=== PATIENT | female | born 1935 | race Caucasian/White ===

== ENCOUNTER → 2017-07-01 | Outpatient (CLI) | payer OTHER ==
[~2017-07-01] MED LIST: AUGMENTIN 875-1 EACH PER TUBE; BISACODYL SUPP10 MG RECTAL; CELEXA40 MG PER TUBE; DILTIAZEM HCL60 MG PER TUBE; FENTANYL PATCH75 MCG TRANSDERM; HYDRALAZINE 2525 MG PO; JEVITY 1.2 CAL237 ML PO; LIDODERM1 EACH TRANSDERM; LIORESAL 10 MG10 MG PER TUBE; LIPITOR10 MG PER TUBE; NEURONTIN250 MG/5 M PER TUBE; NORCO 10-325 T1 EACH PER TUBE; NYSTATIN100000 UNI SW&SWALLOW; ONDANSETRON HCL4 M2 PER TUBE; OXYCODONE HCL 55 MG PER TUBE; PEPCID20 MG PER TUBE; PROBIOTIC1 EAC1 PER TUBE; SENNA8.6 MG PER TUBE; UNICOMPLEX M TA1 TA1 PO; VITAMINC500 PO; ZINC-220220 MG PO
== END ==
LOC: HYPER 06:47
DX: L89.154 Pressure ulcer of sacral region, stage 4 (principal); K21.9 Gastro-esophageal reflux disease without esophagitis; I48.91 Unspecified atrial fibrillation; E78.5 Hyperlipidemia, unspecified; H26.9 Unspecified cataract; I10 Essential (primary) hypertension; M19.90 Unspecified osteoarthritis, unspecified site; G82.54 Quadriplegia, C5-C7 incomplete; Z90.710 Acquired absence of both cervix and uterus

== ENCOUNTER → 2017-07-23 | Outpatient (CLI) | payer OTHER | LOC: HYPER 08:12 | DX: L89.154 Pressure ulcer of sacral region, stage 4 (principal); I10 Essential (primary) hypertension; I48.91 Unspecified atrial fibrillation; E78.5 Hyperlipidemia, unspecified; K21.9 Gastro-esophageal reflux disease without esophagitis; G82.54 Quadriplegia, C5-C7 incomplete; M19.90 Unspecified osteoarthritis, unspecified site; Z90.710 Acquired absence of both cervix and uterus ==

== ENCOUNTER → 2017-08-09 | Outpatient (CLI) | payer OTHER | LOC: HYPER 06:47 | DX: L89.154 Pressure ulcer of sacral region, stage 4 (principal); G82.50 Quadriplegia, unspecified; M62.838 Other muscle spasm; R60.0 Localized edema; R13.12 Dysphagia, oropharyngeal phase; K21.9 Gastro-esophageal reflux disease without esophagitis; E78.5 Hyperlipidemia, unspecified; I48.91 Unspecified atrial fibrillation; I10 Essential (primary) hypertension; M19.90 Unspecified osteoarthritis, unspecified site; Z90.710 Acquired absence of both cervix and uterus ==

== ENCOUNTER 2017-08-20 12:34 | Inpatient (IN) | payer OTHER ==
[~2017-08-20] VITALS: Ht 162.6 cm; Wt 75.3 kg
--- NOTE | ~2017-08-20 | S ---
[facility] [place] [address] SURGICAL PATH RPT PROCEDURE Name: SHERI AGUIRRE Room #: 213-P ADM IN M.R.#: [id number] Admission: 08/20/17 Date of : 37 Discharge: Report #: [id number] Path Case #: [id number] PATHOLOGY REPORT COLLECTION DATE: 08/23/2017 RECEIVED DATE: 08/23/2017 SUBMITTING PHYS: Dr. Jp Rivas OTHER PHYS: Dr. Stewart Cisneros SPECIMEN(S) RECEIVED: A.Sacral wound * * * * * * * * * * * * FINAL DIAGNOSIS: Sacral wound, debridement: - Ulceration along with marked acute inflammation as well as gangrenous necrosis. (IUV:mml; 08/24/2017) PATHOLOGIST: Ayla Holley M.D. REPORT ELECTRONICALLY SIGNED BY: Ayla Holley M.D. DATE/TIME: 08/24/2017 15:02 * * * * * * * * * * * * GROSS PATHOLOGY: The specimen is received in formalin, labeled "Sheri Aguirre, sacral wound," and consists of a circular segment of pink-drummond skin with underlying necrotic soft tissue measuring 3.5 x 2.8 x 1.8 cm. Paper Gluing Operator sections are submitted in cassette A1. (SDY; 08/23/2017) CLINICAL HISTORY: Sacral wound INITIAL CPT CODE(S): A; 16416 Professional services performed by [facility] at [facility] [address], [place] [address] Technical services performed by [facility] at [address] [place] [address], [address] [address]. [facility] [address] [place] [address] SURGICAL PATH RPT PROCEDURE Name: SHERI AGUIRRE Room #: 213-P ADM IN M.R.#: [id number] Admission: 08/20/17 Date of : 37 Discharge: Report #: [id number] Path Case #: [id number] [facility] [address] [place] [id number] PHONE: [phone] DIRECTOR: Eben Rao M.D. * * * END OF REPORT * * *
--- NOTE | ~2017-08-20 | EKG ---
[address] [place] [address] ELECTROCARDIOGRAM REPORT Name: KATHY ELAM Room #: 430-P ADM IN M.R.#: [id number] Admission: 08/20/17 Attend Phys: Stewart Powell DO Discharge: Date of : 37 Report #: [id number] THIS REPORT FOR: //name// [facility] Test Date: 2017-08-20 Test Time: 14:17:35 Pat Name: KATHY ELAM Department: Room: 430 Gender: F Study Lead: CARINE : 1935 Requested By: Laura Alvarez Order Number: [id number] MD: Lui Strickland Measurements Intervals [place] Rate: 75 P: 41 NH: 248 QRS: 17 QRSD: 131 T: -14 QT: 421 QTc: 471 Interpretive Statements Sinus rhythm Prolonged NH interval IVCD, consider atypical RBBB Poor R wave progression No previous ECG available for comparison Electronically Signed On 08-22-2017 13:53:34 CDT by Lui Strickland [email or web address] <ELECTRONICALLY SIGNED> By: Lui Strickland MD, [facility] 08/22/17 1353 1417 141 Lui Strickland MD, [facility] /EPI
--- NOTE | ~2017-08-20 | EKG ---
[address] [address] ELECTROCARDIOGRAM REPORT Name: KATHY ELAM Room #: 430-P ADM IN M.R.#: [id number] Admission: 08/20/17 Attend Phys: Stewart Powell DO Discharge: Date of : 37 Report #: [id number] THIS REPORT FOR: //name// [facility] Test Date: 2017-08-20 Test Time: 18:12:43 Pat Name: KATHY ELAM Department: Room: 430 P Gender: F Special Procedure Technologist: CARINE : 1935 Requested By: Chasity Rojas Order Number: [id number] MD: Lui Strickland Measurements Intervals [place] Rate: 92 P: OR: QRS: 97 QRSD: 122 T: -18 QT: 367 QTc: 455 Interpretive Statements Atrial fibrillation Poor R wave progression No previous ECG available for comparison Electronically Signed On 08-22-2017 13:54:55 CDT by Lui Strickland [email or web address] <ELECTRONICALLY SIGNED> By: Lui Strickland MD, [facility] 08/22/17 1354 1812 11 Lui Strickland MD, [facility] /EPI
--- NOTE | ~2017-08-20 | HC ---
[facility] [place] [address] CONSULTATION Name: KATHY ELAM Room #: 430-P [facility] IN M.R.#: [id number] Admission: 08/20/17 Attend Phys: Stewart Powell DO Discharge: Date of : 37 Report #: [id number] THIS REPORT FOR: //name// CC: FAM unknown Stewart Powell DATE OF SERVICE: 08/20/2017 REFERRING PROVIDER: Dr. Stewart Powell. REASON FOR CONSULTATION: Sacral decubitus wound and gastrostomy tube malfunction with slight cellulitis. HISTORY OF PRESENT ILLNESS: The patient is an 82-year-old female with a known history of quadriplegia and rheumatoid arthritis with severe upper extremity contractures, who has undergone prior placement of a gastrostomy tube which has been malfunctioning as of late. The patient has been unable to have her tube changed for the past year and there is sediment contained within the tube that appears to be mold like. The patient has developed a stage 4 sacral decubitus wound that is near her anal orifice and she has had consistent stooling in the bed of the wound, which is preventing wound healing. In addition, the patient has chronic Lam catheter usage with significant ulcerations at her urethral meatus and as such, she has been admitted for care of her sacral wound with early cellulitis, exchange of her gastrostomy tube and colostomy with suprapubic catheter placement. PAST MEDICAL HISTORY: Quadriplegia, rheumatoid arthritis with upper extremity contractures, dysphagia, status post gastrostomy tube placement, hyperlipidemia, atrial fibrillation, prior hysterectomy and bilateral hip surgery. HOME MEDICATIONS: Extensive and include Zofran, [place], citalopram, DuoNebs, Flonase, Neurontin, Lioresal, famotidine, atorvastatin, fentanyl patch, Ativan, nystatin cream, diltiazem, oxycodone IR. ALLERGIES: No known drug allergies. SOCIAL HISTORY: The patient does not utilize tobacco, alcohol or illicit drugs. FAMILY HISTORY: Reviewed and noncontributory. REVIEW OF SYSTEMS: GENERAL: The patient denies nocturnal fevers or chills. HEENT: No change in vision, change in hearing. NECK: No swelling, but difficulty swallowing. HEART: No chest pain or palpitations. LUNGS: No cough or shortness of breath. [address] [address] CONSULTATION Name: KATHY ELAM Room #: [facility] IN M.R.#: [id number] Admission: 08/20/17 Attend Phys: Stewart Powell DO Discharge: Date of : 36 Report #: [id number] ABDOMEN: No nausea, no vomiting. GENITOURINARY: No dysuria or hematuria. ENDOCRINE: No polyuria, polydipsia. HEMATOLOGIC: No history of bleeding or easy bruising. EXTREMITIES: Significant contractures of the upper extremity with quadriplegia. NEUROLOGIC: No history of syncope or near syncopal episodes. SKIN AND INTEGUMENT: Stage 4 sacral decubitus wound. No other lesions in the history. PSYCHIATRIC: No history of anxiety, although there is a history of depression. PHYSICAL EXAMINATION: VITAL SIGNS: Temperature 98.1, pulse 79, respirations 18, blood pressure 123/48, she is 5 feet 4 inches tall and weighs 166 pounds. GENERAL: Alert and oriented, in no acute distress. HEENT: Normocephalic, atraumatic. Pupils equal, round, reactive to light. NECK: Supple, without lymphadenopathy. Trachea midline. HEART: Irregularly irregular rhythm. LUNGS: Clear to auscultation bilaterally. ABDOMEN: Soft, nontender, nondistended. Gastrostomy tube is in place with sediment contained within it that appears mold like. GENITOURINARY: Normal external female genitalia with Lam catheter in place. EXTREMITIES: No clubbing, cyanosis or edema. She does have contractures of bilateral upper extremities. NEUROLOGIC: Cranial nerves 2-12 are grossly intact. She does have incomplete quadriplegia: PSYCHIATRIC: Normal mood and affect. SKIN AND INTEGUMENT: Stage 4 sacral decubitus wound shows slough and periwound necrosis. LABORATORY AND X-RAY DATA: CBC shows white blood cell count of 8.8 thousand; hemoglobin 11.5; platelets 351,000. Creatinine 0.5. Liver function enzymes are normal. Albumin is low at 2.9. Troponin negative. TSH and vitamin B12 are normal. Chest x-ray shows no acute cardiopulmonary process. ASSESSMENT AND PLAN: An 82-year-old female with atrial fibrillation and hyperlipidemia who has incomplete quadriplegia and a malfunctioning gastrostomy tube with a stage 4 sacral decubitus wound that has early cellulitis. The patient necessitates debridement of her wound with exchange of her G-tube and colostomy placement as well as suprapubic catheter placement by IR. The patient will be evaluated by Internal Medicine and Cardiology to obtain preoperative medical and cardiac clearance and once obtained, we will proceed to the operating room for debridement of her sacral wound and diverting loop transverse colostomy with exchange of her gastrostomy tube. She will undergo IR placement of her suprapubic catheter as well. I sincerely appreciate this consult. I did spend more than 60 minutes with the [address] [address] CONSULTATION Name: KATHY ELAM Room #: 430-P ADM IN .R.#: [id number] Admission: 08/20/17 Attend Phys: Stewart Powell DO Discharge: Date of : 37 Report #: [id number] patient today as well as with speaking with the patient's DPOA, which is her niece, Irene and described all the above and all parties are in agreeance to proceed as outlined. I will follow the patient closely while hospitalized and leave any further recommendations in the patient's chart as appropriate. Again, I sincerely appreciate this consult. <ELECTRONICALLY SIGNED> By: Jp Rivas MD, FACS 08/20/17 1558 1529 1556 Jp Rivas MD, FACS /nt
--- NOTE | ~2017-08-20 | 2DMMODE ---
[facility] [address] [place] [address] 2 D/M-MODE ECHOCARDIOGRAM Name: KATHY ELAM Room #: 430-P ADM IN .R.#: [id number] Admission: 08/20/17 Attend Phys: Stewart Powell, Discharge: Date of : 37 Date of Service: 08/21/17 1427 Report #: [id number] THIS REPORT FOR: //name// APPROVED REPORT Study performed: 08/21/2017 10:25:01 EXAM: Comprehensive 2D, Doppler, and color-flow Echocardiogram Patient Location: Bedside Room #: 430 Status: on-call BSA: 1.81 HR: 74 bpm BP: 159/74 mmHg Other Information Study Quality: Technically Limited Technically limited study due to inability to position patient, chest malformation. Indications Pre-Op Atrial Fibrillation 2D Dimensions LVEF(%): 53.89 (>50%) IVSd: 12.91 (7-11mm) LVOT Diam: 19.15 (18-24mm) LVDd: 36.98 mm PWd: 12.63 (7-11mm) Ascending Ao: 25.67 (22-36mm) LVDs: 26.90 (25-40mm) Aortic Root: 29.98 mm Quiroga's LVEF: 53.89 % Aortic Valve AoV Peak Esequiel.: 1.06 m/s AO Peak Gr.: 4.47 mmHg LVOT Max P.44 mmHg LVOT Max V: 0.78 m/s SAMEERA Vmax: 2.13 cm2 Mitral Valve E/A Ratio: 1.1 MV Decel. Time: 275.40 ms MV E Max Esequiel.: 0.74 m/s MV A Esequiel.: 0.69 m/s MV PHT: 79.87 ms [facility] [address] [place] [place] [address] 2 D/M-MODE ECHOCARDIOGRAM Name: LAMBERTO ELAMTE Room #: [address] [place] [address] IN ..#: [id number] Admission: 08/20/17 Attend Phys: Stewart Powell, Discharge: Date of : 37 Date of Service: 08/21/17 1427 Report #: [id number] IVRT: 96.89 ms Pulmonary Valve PV Peak Esequiel.: 0.80 m/s PV Peak Gr.: 2.56 mmHg Left Ventricle The left ventricle is normal size. Mild concentric left ventricular hypertrophy. The left ventricular systolic function is normal. The left ventricular ejection fraction is within the normal range. LVEF is 55-60%. Right Ventricle The right ventricle is normal size. The right ventricular systolic function is normal. Atria The left atrium size is normal. The right atrium size is normal. Aortic Valve The aortic valve is normal in structure. Aortic valve is calcified. There is no aortic valvular stenosis. Mitral Valve The mitral valve is normal in structure. Trace mitral regurgitation. No evidence of mitral valve stenosis. Tricuspid Valve The tricuspid valve is normal in structure. There is trace tricuspid regurgitation. The right atrial pressure is estimated at mmHg. There is no pulmonary hypertension. Pulmonic Valve The pulmonary valve is normal in structure. There is no pulmonic valvular regurgitation. Great Vessels The aortic root is normal in size. IVC is not well visualized. Pericardium There is no pericardial effusion. <Conclusion> The left ventricle is normal size. LVEF is 55-60%. [facility] [place] [address] 2 D/M-MODE ECHOCARDIOGRAM Name: LAMBERTO ELAMTE Room #: 430-P [facility] IN M.R.#: [id number] Admission: 08/20/17 Attend Phys: Stewart Powell, Discharge: Date of : 37 Date of Service: 08/21/17 142 Report #: [id number] The aortic valve is normal in structure. Aortic valve is calcified. The mitral valve is normal in structure. Trace mitral regurgitation. The tricuspid valve is normal in structure. There is trace tricuspid regurgitation. The right atrial pressure is estimated at mmHg. There is no pulmonary hypertension. The pulmonary valve is normal in structure. There is no pericardial effusion. <ELECTRONICALLY SIGNED> By: Norm Omer MD 08/21/17 1427 142 1427 Norm Omer MD /INF
--- NOTE | ~2017-08-20 | O ---
[facility] [place] [address] OPERATIVE REPORT Name: KATHY ELAM Room #: 213-P [facility] IN M.R.#: [id number] Admission: 08/20/17 Attend Phys: Stewart Powell DO Discharge: Date of : 36 Report #: [id number] THIS REPORT FOR: //name// CC: FAM unknown Stewart Powell DATE OF SERVICE: 08/23/2017 PREOPERATIVE DIAGNOSES: 1. Nonhealing stage IV sacral decubitus ulcer. 2. Severe protein calorie malnutrition. 3. Malfunctioning PEG tube. 4. Incomplete quadriplegia. 5. Need for urinary and fecal diversion. 6. Rheumatoid arthritis with upper extremity contractures. 7. Dysphagia, status post PEG tube placement that is nonfunctional. 8. Atrial fibrillation. POSTOPERATIVE DIAGNOSES: 1. Nonhealing stage IV sacral decubitus ulcer. 2. Severe protein calorie malnutrition. 3. Malfunctioning PEG tube. 4. Incomplete quadriplegia. 5. Need for urinary and fecal diversion. 6. Rheumatoid arthritis with upper extremity contractures. 7. Dysphagia, status post PEG tube placement that is nonfunctional. 8. Atrial fibrillation. PROCEDURES PERFORMED: 1. Excisional debridement of skin, subcutaneous tissue, muscle and bone of a stage 4 sacral decubitus wound ultimately measuring 3 x 3 cm in dimension (9 square cm). Preoperative wound measurements were 2 x 2 cm in dimension with circumferential undermining. 2. Thorough esophagogastroduodenoscopy (EGD) with endoscopic removal of an indwelling percutaneous endoscopic gastrostomy (PEG) tube. 3. Percutaneous replacement of a 22-Indonesian gastrostomy tube. 4. Diverting loop transverse colostomy. SURGEON: Jp Rivas M.D. PILOT FUEL ENGINEER: KALEE Castellano. ANESTHESIA: General endotracheal anesthesia. ESTIMATED BLOOD LOSS: Minimal (less than 5 mL). [address] [address] OPERATIVE REPORT Name: KATHY ELAM Room #: 213-P [facility] IN [facility].#: [id number] Admission: 08/20/17 Attend Phys: Stewart Powell DO Discharge: Date of : 36 Report #: [id number] COMPLICATIONS: None appreciated. SPECIMENS: All excised tissue from sacral wound to pathology. INDICATIONS: The patient is an 82-year-old female with incomplete quadriplegia and severe rheumatoid arthritis with upper extremity contractures, who presented with a nonhealing stage IV sacral decubitus wound that has chronic contamination due to stool and urine. The patient presents for debridement of her infected sacral wound as well as diverting colostomy and suprapubic catheter placement, which is to be performed by Interventional Radiology. In addition, her PEG tube, which has been indwelling for quite some time, has been nonfunctional as of late and has overt mold contained throughout the tube; however, this was not able to be removed at the bedside even with traction placed on it, thereby necessitating EGD today. Intraoperative findings of a coiled PEG tube tied and a knot intraluminally within the gastric lumen is what was preventing removal and this required endoscopic removal today with a loop snare prior to replacement of a balloon tip standard gastrostomy tube through the gastrocutaneous fistula tract that remained. DESCRIPTION OF PROCEDURE: After explaining the risks, benefits and alternatives of the procedure with the patient in detail in the preoperative holding area and obtaining consent, the patient was brought to the operating room and placed supine on the operating room table. After conducting a thorough timeout procedure verifying correct patient and procedure, the patient was given general endotracheal anesthesia. Once adequate anesthesia was obtained, her SCDs were hooked up to pneumatic compression device. She was already on an inpatient regimen of IV antibiotic therapy, which is in line with the SCIP protocol. The patient was positioned in the right lateral decubitus position with all pressure points appropriately padded and her sacral wound was prepped and draped in standard surgical sterile fashion. Electrocautery was used to circumferentially debride all skin, subcutaneous tissue and muscle from the periphery of the wound. It was undermined all the way back down to the depths of the wound, which was at the sacral bone. Rongeurs were used to remove bone. Hemostasis was achieved with electrocautery. All tissue was passed off the field as specimen. I then used the [employer] ultrasonic debridement tool to further remove all biofilm and nonviable tissue. Hemostasis was assured once again and the wound was packed with sterile saline soaked gauze, dressed with ABDs, 4 x 4s and Medipore tape. The patient was then positioned back in the supine position and the Fujinon upper endoscope was used to intubate the oropharynx, which was traversed down into the esophagus with ease. Once within the gastric lumen, the internal flange of the PEG tube was seen and the PEG tube itself had become tied in a knot somehow and this was preventing removal through the gastrocutaneous fistula tract. A loop snare was placed down the scope and was used to lasso the internal flange. The PEG tube was then pulled up externally and suture scissors were used to cut this at the skin level. I then proceeded to remove the EGD scope, bringing the internal flange with it, which was pulled out the mouth, [facility] [address] [place] [address] OPERATIVE REPORT Name: KATHY ELAM Room #: 213-P ADM IN M.R.#: [id number] Admission: 08/20/17 Attend Phys: Stewart Powell, Discharge: Date of : 36 Report #: [id number] removing the entire PEG tube in full. The EGD scope was replaced back down in the gastric lumen and we saw no evidence of pathology further. I then used a 22-Indonesian gastrostomy tube and replaced this directly through the remaining patent gastrocutaneous fistula tract. A 10 mL balloon was blown up within the gastric lumen and the external flange was slid down to the skin level at 2 cm marking at the skin level. The EGD scope was used to desufflate the stomach. Lam was removed via the oropharynx, passed off the field and the abdomen was prepped and draped in standard surgical sterile fashion. A #10 bladed scalpel was used to create a 2.5 cm vertical incision in the right mid abdomen, 3 cm lateral to the umbilicus in the patient's right side and 2 cm cephalad to the umbilicus. Electrocautery was used to carry this down through skin and subcutaneous tissues to ensure hemostasis. Once I arrived upon the anterior fascia, this was scored vertically as well, revealing the right rectus muscle posteriorly. The rectus muscle fibers were spread laterally revealing the posterior fascia, which was grasped between hemostats and opened with Metzenbaum scissors. Once intra-abdominal access was gained, a finger was placed in the abdomen, I proceeded to open the fascia for the entire 2.5 cm skin incision length. The transverse colon was seen to reside immediately posterior to our incision and Paulden clamp was used to elevate this into the bed of the wound. A window was made in the mesentery with blunt dissection from my finger and I proceeded to place a colostomy retention bar through this, which was then anchored to the skin using 2-0 nylon in standard fashion. The antimesenteric aspect of the colon was elevated between DeBakey forceps and I proceeded to open the antimesenteric aspect with electrocautery longitudinally. Once I made a colotomy, hemostat was placed within the lumen to ensure no damage to the posterior wall whatsoever. Once I opened the colotomy for approximately 3 cm, I proceeded to mature the colostomy in standard fashion. A 3-0 Vicryl was used to anchor both superiorly and inferiorly on either side of the retention bar, therefore using four separate sutures grabbing full thickness bites of the colon and anchoring it to the dermis on each side of the bar. I then anchored the remaining mucocutaneous junction on the right and left lateral aspects using a running 3-0 Vicryl to complete the mucocutaneous juncture and finished maturing the colostomy. Digital finger intubation of both lumens showed them to be patent to a subfascial level. A sterile ostomy appliance was then applied. At the end of the procedure, all instrument, needle and sponge counts were correct. The patient tolerated the procedure without incident, was awakened in the operating room and transitioned to the recovery room in stable condition with no apparent complications. <ELECTRONICALLY SIGNED> By: Jp Rivas MD, FACS 08/24/17 0745 1248 1320 Jp Rivas MD, FACS /nt
[2017-08-20 13:00] VITALS: BP 123/48
[2017-08-20 14:04] LABS: ABSOLUTE NEUTROPHILS 6.6 thou/uL (1.4-8.2); BASOPHILS 0.3 % (0.0-2.0); EOSINOPHILS 3.7 % (0.0-3.0); HEMATOCRIT 36.1 % (37.0-47.0); HEMOGLOBIN 11.5 gm/dL (12.0-15.0); LYMPHOCYTES 12.2 % (24.0-44.0); MCHC 31.7 g/dL (28.0-37.0); MCV 78.7 fL (80.0-100.0); MONOCYTES 9.2 % (1.0-8.0); PLATELET COUNT 351 thou/uL (150-400); POLYS 74.6 % (36.0-66.0); RBC 4.59 mil/uL (4.20-5.00); RDW 18.4 % (10.5-14.5); WBC 8.8 thou/uL (4.0-11.0)
[2017-08-20 14:20] LABS: CALCIUM 8.7 mg/dL (8.5-10.1); CREATININE 0.5 mg/dL (0.6-1.0); POTASSIUM 3.3 mmol/L (3.5-5.1)
[2017-08-20 14:25] LABS: ALBUMIN 2.9 g/dL (3.4-5.0); TOTAL BILIRUBIN 0.3 mg/dL (<0.1-1.0); TOTAL PROTEIN 7.8 g/dL (6.4-8.2)
[2017-08-20 15:07] LABS: TSH 1.108 uIU/mL (0.358-3.740)
[2017-08-20 19:23] VITALS: BP 144/72
[2017-08-20 23:51] LABS: URINE BILIRUBIN NEGATIVE (Negative); URINE BLOOD 1+ (Negative); URINE CLARITY CLOUDY; URINE COLOR YELLOW; URINE GLUCOSE-RANDOM* NEGATIVE (Negative); URINE KETONES NEGATIVE (Negative); URINE NITRITE-REFLEX NEGATIVE (Negative); URINE PROTEIN (DIPSTICK) TRACE (Negative); URINE SPECIFIC GRAVITY 1.015 (1.005-1.035); URINE UROBILINOGEN 0.2 E.U./dl (0.2-1.0)
[2017-08-20 23:53] LABS: URINE LEUKOCYTES-REFLEX 3+ (Negative)
[2017-08-21 00:07] LABS: CASTS None Seen /LPF (None Seen); MUCUS 0-3 Light strn/LPF (None Seen); SQUAMOUS 4-10 Moderate /LPF (0-3); URINE WBC-REFLEX >25 Many /HPF (0-5)
[2017-08-21 00:08] LABS: AMORPHOUS PHOSPHATES Moderate /LPF (None Seen); BACTERIA-REFLEX >30 Many /HPF (None Seen); TRIPLE PHOSPHATE CRYSTALS 0-3 Few /LPF (None Seen); URINE RBC 3-10 Few /HPF (0-2)
[2017-08-21] MEDS ORDERED: LIORESAL 10 MG10 MG PER TUBE ×2 (03:09→03:10)
[2017-08-21] MEDS ORDERED: FENTANYL PATCH75 MCG TRANSDERM (03:11)
[2017-08-21] MEDS ORDERED: NORCO 10-325 T1 EACH PER TUBE (03:14)
[2017-08-21] MEDS ORDERED: OXYCODONE HCL 55 MG PER TUBE (03:17)
[2017-08-21] MEDS ORDERED: NEURONTIN250 MG/5 M PER TUBE (03:20)
[2017-08-21] MEDS ORDERED: DILTIAZEM HCL60 MG PER TUBE (03:24)
[2017-08-21 03:45] VITALS: BP 152/77
[2017-08-21 04:17] LABS: ABSOLUTE NEUTROPHILS 5.9 thou/uL (1.4-8.2); BASOPHILS 0.4 % (0.0-2.0); EOSINOPHILS 8.2 % (0.0-3.0); HEMATOCRIT 35.9 % (37.0-47.0); HEMOGLOBIN 11.2 gm/dL (12.0-15.0); LYMPHOCYTES 19.7 % (24.0-44.0); MCH 24.7 pg (26.0-34.0); MCHC 31.1 g/dL (28.0-37.0); MCV 79.3 fL (80.0-100.0); MONOCYTES 10.3 % (1.0-8.0); PLATELET COUNT 344 thou/uL (150-400); POLYS 61.4 % (36.0-66.0); RBC 4.53 mil/uL (4.20-5.00); WBC 9.6 thou/uL (4.0-11.0)
[2017-08-21] MEDS ORDERED: HYDRALAZINE 2525 MG PO (04:19)
[2017-08-21] MEDS ORDERED: BISACODYL SUPP10 MG RECTAL (04:20)
[2017-08-21] MEDS ORDERED: SENNA8.6 MG PER TUBE (04:21)
[2017-08-21] MEDS ORDERED: LIPITOR10 MG PER TUBE (04:21)
[2017-08-21] MEDS ORDERED: ONDANSETRON HCL4 M2 PER TUBE (04:22)
[2017-08-21] MEDS ORDERED: PEPCID20 MG PER TUBE (04:22)
[2017-08-21] MEDS ORDERED: CELEXA40 MG PER TUBE (04:23)
[2017-08-21 04:29] LABS: INR 1.1; PROTIME 11.4 Seconds (9.3-11.4)
[2017-08-21 04:40] LABS: ANION GAP 7 mmol/L (7-16); BUN 9 mg/dL (7-18); CALCIUM 8.9 mg/dL (8.5-10.1); CHLORIDE 100 mmol/L (98-107); CHOLESTEROL 104 mg/dL (<200); CO2 29 mmol/L (21-32); CREATININE 0.3 mg/dL (0.6-1.0); GLUCOSE 100 mg/dL (74-106); HDL CHOLESTEROL 30 mg/dL (>40); LDL CHOLESTEROL 62 mg/dL (<100); MAGNESIUM 1.9 mg/dL (1.8-2.4); POTASSIUM 3.8 mmol/L (3.5-5.1); SODIUM 136 mmol/L (136-145); TC:HDL 3.5 Ratio (Not establshd); TRIGLYCERIDE 60 mg/dL (<150); VLDL 12 mg/dL (<40)
[2017-08-21 04:41] LABS: SERUM ASSESSMENT Clear
[2017-08-21] MEDS ORDERED: LIDODERM1 EACH TRANSDERM (07:31)
[2017-08-21] MEDS ORDERED: ZINC-220220 MG PO (07:34)
[2017-08-21] MEDS ORDERED: VITAMINC500 PO (07:36)
[2017-08-21] MEDS ORDERED: UNICOMPLEX M TA1 TA1 PO (07:36)
[2017-08-21] MEDS ORDERED: JEVITY 1.2 CAL237 ML PO (07:37)
[2017-08-21 08:00] VITALS: BP 159/74
[2017-08-21 15:45] VITALS: BP 168/69
[2017-08-21 20:15] VITALS: BP 155/82
[2017-08-22 04:06] VITALS: BP 141/77
[2017-08-22 04:12] VITALS: BP 141/77
[2017-08-22 06:20] LABS: ABSOLUTE NEUTROPHILS 5.5 thou/uL (1.4-8.2); BASOPHILS 0.5 % (0.0-2.0); EOSINOPHILS 6.3 % (0.0-3.0); HEMATOCRIT 37.9 % (37.0-47.0); LYMPHOCYTES 21.4 % (24.0-44.0); MCH 25.3 pg (26.0-34.0); MCHC 31.7 g/dL (28.0-37.0); MCV 79.9 fL (80.0-100.0); MONOCYTES 10.4 % (1.0-8.0); PLATELET COUNT 384 thou/uL (150-400); POLYS 61.4 % (36.0-66.0); RBC 4.75 mil/uL (4.20-5.00); RDW 18.3 % (10.5-14.5)
[2017-08-22 06:29] LABS: CALCIUM 9.5 mg/dL (8.5-10.1); CREATININE 0.4 mg/dL (0.6-1.0); POTASSIUM 4.7 mmol/L (3.5-5.1)
[2017-08-22 07:48] VITALS: BP 178/92
[2017-08-22 19:15] VITALS: BP 156/85
[2017-08-23] VITALS (9 sets, daily range): BP systolic 149–182; BP diastolic 62–99
[2017-08-23 06:02] LABS: HEMATOCRIT 38.8 % (37.0-47.0); HEMOGLOBIN 12.4 gm/dL (12.0-15.0); MCH 25.2 pg (26.0-34.0); MCV 78.7 fL (80.0-100.0); RBC 4.93 mil/uL (4.20-5.00); RDW 17.7 % (10.5-14.5); WBC 9.8 thou/uL (4.0-11.0)
[2017-08-23 06:21] LABS: CALCIUM 9.3 mg/dL (8.5-10.1); CREATININE 0.4 mg/dL (0.6-1.0); POTASSIUM 4.3 mmol/L (3.5-5.1)
[2017-08-24 04:25] LABS: ABSOLUTE NEUTROPHILS 12.1 thou/uL (1.4-8.2); BASOPHILS 0.3 % (0.0-2.0); HEMATOCRIT 37.2 % (37.0-47.0); HEMOGLOBIN 11.9 gm/dL (12.0-15.0); LYMPHOCYTES 6.6 % (24.0-44.0); MCH 25.1 pg (26.0-34.0); MCHC 31.9 g/dL (28.0-37.0); MCV 78.8 fL (80.0-100.0); MONOCYTES 6.3 % (1.0-8.0); PLATELET COUNT 452 thou/uL (150-400); POLYS 86.8 % (36.0-66.0); RBC 4.73 mil/uL (4.20-5.00); RDW 18.1 % (10.5-14.5); WBC 13.9 thou/uL (4.0-11.0)
[2017-08-24 04:30] LABS: CALCIUM 9.2 mg/dL (8.5-10.1); CREATININE 0.4 mg/dL (0.6-1.0); POTASSIUM 4.4 mmol/L (3.5-5.1)
[2017-08-24 04:40] VITALS: BP 142/61
[2017-08-24 07:54] VITALS: BP 139/52
[2017-08-24 11:24] VITALS: BP 121/49
[2017-08-24 19:57] VITALS: BP 110/47
[2017-08-24 20:42] VITALS: BP 110/47
[2017-08-25] VITALS (9 sets, daily range): BP systolic 143–165; BP diastolic 55–66
[2017-08-25 02:36] LABS: ABSOLUTE NEUTROPHILS 9.4 thou/uL (1.4-8.2); BASOPHILS 0.6 % (0.0-2.0); EOSINOPHILS 0.7 % (0.0-3.0); HEMATOCRIT 36.4 % (37.0-47.0); HEMOGLOBIN 11.3 gm/dL (12.0-15.0); LYMPHOCYTES 11.7 % (24.0-44.0); MCH 24.7 pg (26.0-34.0); MCHC 31.1 g/dL (28.0-37.0); MCV 79.4 fL (80.0-100.0); MONOCYTES 8.6 % (1.0-8.0); PLATELET COUNT 423 thou/uL (150-400); POLYS 78.4 % (36.0-66.0); RBC 4.58 mil/uL (4.20-5.00); RDW 17.8 % (10.5-14.5)
[2017-08-25 02:48] LABS: CALCIUM 9.1 mg/dL (8.5-10.1); CREATININE 0.3 mg/dL (0.6-1.0); POTASSIUM 4.1 mmol/L (3.5-5.1)
[2017-08-25] MEDS ORDERED: NYSTATIN100000 UNI SW&SWALLOW (15:12)
[2017-08-25] MEDS ORDERED: AUGMENTIN 875-1 EACH PER TUBE (15:27)
[2017-08-25] MEDS ORDERED: PROBIOTIC1 EAC1 PER TUBE (15:27)
== END 2017-08-25 17:45 | DRG 329 ==
LOC: 4E 12:34 → 2N 08-23 18:05
PROVIDERS: Family Medicine; Hospitalist; Nurse Practitioner; Surgery
DX: K94.23 Gastrostomy malfunction (principal); L89.154 Pressure ulcer of sacral region, stage 4; G82.54 Quadriplegia, C5-C7 incomplete; E43 Unspecified severe protein-calorie malnutrition; N39.0 Urinary tract infection, site not specified; M06.9 Rheumatoid arthritis, unspecified; E78.5 Hyperlipidemia, unspecified; I10 Essential (primary) hypertension; G89.29 Other chronic pain; R13.10 Dysphagia, unspecified; I48.0 Paroxysmal atrial fibrillation; Z90.710 Acquired absence of both cervix and uterus; Z68.28 Body mass index [BMI] 28.0-28.9, adult; Z88.6 Allergy status to analgesic agent; Z88.8 Allergy status to other drugs, medicaments and biological substances
CPT/HCPCS: 10081; 10183; 50010; 50101; 50386; 50403; 50455; 53353; 53354; 56524; 56525; 56530; 57092; 62110; 62900; 70005

== ENCOUNTER 2017-09-17 15:32 | Emergency (ER) | payer OTHER ==
[~2017-09-17] VITALS: Ht 167.6 cm; Wt 76.2 kg
== END 2017-09-17 20:17 | disposition home or self-care (01) ==
LOC: ER 15:32
DX: T83.098A Other mechanical complication of other urinary catheter, initial encounter (principal); I48.91 Unspecified atrial fibrillation; E78.5 Hyperlipidemia, unspecified; G89.29 Other chronic pain; Z88.5 Allergy status to narcotic agent; Y84.8 Other medical procedures as the cause of abnormal reaction of the patient, or of later complication, without mention of misadventure at the time of the procedure; Y92.89 Other specified places as the place of occurrence of the external cause

== ENCOUNTER → 2017-10-28 | Outpatient (CLI) | payer OTHER | LOC: HYPER 06:44 | DX: L89.154 Pressure ulcer of sacral region, stage 4 (principal); I48.91 Unspecified atrial fibrillation; I10 Essential (primary) hypertension; E78.5 Hyperlipidemia, unspecified; K21.9 Gastro-esophageal reflux disease without esophagitis; G82.50 Quadriplegia, unspecified; M62.838 Other muscle spasm; M19.90 Unspecified osteoarthritis, unspecified site; Z90.710 Acquired absence of both cervix and uterus; Z87.01 Personal history of pneumonia (recurrent) ==

== ENCOUNTER → 2017-11-09 | Outpatient (CLI) | payer OTHER | LOC: HYPER 07:09 | DX: L89.154 Pressure ulcer of sacral region, stage 4 (principal); E78.5 Hyperlipidemia, unspecified; I10 Essential (primary) hypertension; I48.91 Unspecified atrial fibrillation; K21.9 Gastro-esophageal reflux disease without esophagitis; M19.90 Unspecified osteoarthritis, unspecified site; M62.838 Other muscle spasm; G82.50 Quadriplegia, unspecified; G89.29 Other chronic pain; R13.12 Dysphagia, oropharyngeal phase; Z87.01 Personal history of pneumonia (recurrent); Z90.710 Acquired absence of both cervix and uterus ==

== ENCOUNTER → 2017-11-25 | Outpatient (CLI) | payer OTHER | LOC: HYPER 06:50 | DX: L89.153 Pressure ulcer of sacral region, stage 3 (principal); G82.50 Quadriplegia, unspecified; M62.838 Other muscle spasm; R60.0 Localized edema; R13.12 Dysphagia, oropharyngeal phase; K21.9 Gastro-esophageal reflux disease without esophagitis; I48.91 Unspecified atrial fibrillation; E78.5 Hyperlipidemia, unspecified; I10 Essential (primary) hypertension; M19.90 Unspecified osteoarthritis, unspecified site ==

== ENCOUNTER → 2017-12-09 | Outpatient (CLI) | payer OTHER | LOC: HYPER 07:15 | DX: L89.154 Pressure ulcer of sacral region, stage 4 (principal); I48.91 Unspecified atrial fibrillation; I10 Essential (primary) hypertension; E78.5 Hyperlipidemia, unspecified; G82.50 Quadriplegia, unspecified; M19.90 Unspecified osteoarthritis, unspecified site; M62.838 Other muscle spasm; K21.9 Gastro-esophageal reflux disease without esophagitis; Z87.01 Personal history of pneumonia (recurrent); Z90.710 Acquired absence of both cervix and uterus ==

== ENCOUNTER → 2018-01-20 | Outpatient (CLI) | payer OTHER | LOC: HYPER 07:02 | DX: L89.154 Pressure ulcer of sacral region, stage 4 (principal); L89.890 Pressure ulcer of other site, unstageable; I10 Essential (primary) hypertension; I48.91 Unspecified atrial fibrillation; E78.5 Hyperlipidemia, unspecified; K21.9 Gastro-esophageal reflux disease without esophagitis; M62.838 Other muscle spasm; M19.90 Unspecified osteoarthritis, unspecified site; G82.50 Quadriplegia, unspecified; F32.9 Major depressive disorder, single episode, unspecified; Z87.01 Personal history of pneumonia (recurrent) ==

== ENCOUNTER → 2018-03-14 | Outpatient (CLI) | payer OTHER | LOC: HYPER 06:58 | DX: L89.154 Pressure ulcer of sacral region, stage 4 (principal); L89.890 Pressure ulcer of other site, unstageable; E78.5 Hyperlipidemia, unspecified; G82.50 Quadriplegia, unspecified; G89.29 Other chronic pain; I48.91 Unspecified atrial fibrillation; I10 Essential (primary) hypertension; K21.9 Gastro-esophageal reflux disease without esophagitis; M62.838 Other muscle spasm; M19.90 Unspecified osteoarthritis, unspecified site; F32.9 Major depressive disorder, single episode, unspecified; Z93.3 Colostomy status ==

== ENCOUNTER → 2018-04-28 | Outpatient (CLI) | payer OTHER | LOC: HYPER 07:07 | DX: L89.154 Pressure ulcer of sacral region, stage 4 (principal); L89.890 Pressure ulcer of other site, unstageable; G89.4 Chronic pain syndrome; G82.50 Quadriplegia, unspecified; I48.91 Unspecified atrial fibrillation; I10 Essential (primary) hypertension; K21.9 Gastro-esophageal reflux disease without esophagitis; M19.90 Unspecified osteoarthritis, unspecified site; M62.838 Other muscle spasm; F32.9 Major depressive disorder, single episode, unspecified; Z93.3 Colostomy status ==

== ENCOUNTER → 2018-05-25 | Outpatient (CLI) | payer OTHER | LOC: HYPER 06:59 | DX: L89.154 Pressure ulcer of sacral region, stage 4 (principal); L89.890 Pressure ulcer of other site, unstageable; E78.5 Hyperlipidemia, unspecified; G82.50 Quadriplegia, unspecified; G89.4 Chronic pain syndrome; I48.91 Unspecified atrial fibrillation; I10 Essential (primary) hypertension; K21.9 Gastro-esophageal reflux disease without esophagitis; M62.838 Other muscle spasm; M19.90 Unspecified osteoarthritis, unspecified site; F32.9 Major depressive disorder, single episode, unspecified; Z93.3 Colostomy status ==